=== PATIENT | female | born 1940 | race Caucasian/White ===

== ENCOUNTER 2024-06-01 23:20 | Inpatient (IN) | payer MEDICAID ==
[~2024-06-01] VITALS: Ht 160 cm; Wt 72.3 kg
[2024-06-01 23:40] VITALS: BP_SYST 161; PULSE 102; RESP 20; TEMP 96.6; O2SAT 98
[2024-06-02 00:46] LABS: BASOPHILS % (AUTO) 0.3 % (0.0-2.0); EOSINOPHILS % (AUTO) 0.1 % (0.0-4.0); HEMATOCRIT 41.1 % (36-48); HEMOGLOBIN 13.8 g/dL (12.0-16.0); LYMPHOCYTES # (AUTO) 0.8 K/uL (1.0-5.5); LYMPHOCYTES % (AUTO) 5.8 % (20.5-51.5); MEAN CORPUSCULAR HEMOGLOBIN 29 pg (27-31); MEAN CORPUSCULAR HGB CONC 34 % (32-36); MEAN CORPUSCULAR VOLUME 86 fL (79.0-98.0); MONOCYTES # (AUTO) 0.7 K/uL (0.0-1.0); MONOCYTES % (AUTO) 4.6 % (1.7-9.3); NEUTROPHILS # (AUTO) 12.6 K/uL (1.8-7.7); NEUTROPHILS % (AUTO) 89.2 % (40.0-70.0); PLATELET COUNT (AUTO) 262 K/uL (130-430); RED BLOOD CELL COUNT(AUTO) 4.77 MIL/uL (4.2-6.2); RED CELL DISTRIBUTION WIDTH 13.4 % (9.0-15.0); WHITE BLOOD COUNT (AUTO) 14.2 K/uL (4.8-10.8)
[2024-06-02 01:03] LABS: ALANINE AMINOTRANSFERASE 37 U/L (12-78); ALBUMIN 3.7 g/dL (3.4-4.8); ANION GAP 12 (5-15); ASPARTATE AMINOTRANSFERASE 36 U/L (10-37); BILIRUBIN,DIRECT 0.1 mg/dL (0.0-0.3); CARBON DIOXIDE 24 mmol/L (23-29); CHLORIDE 100 mmol/L (98-107); CREATININE 1.19 mg/dL (0.55-1.30); GLUCOSE 145 mg/dL (74-106); LIPASE 28 U/L (16-77); POTASSIUM 3.5 mmol/L (3.5-5.1); SODIUM SERUM 136 mmol/L (136-145); TOTAL BILIRUBIN 0.4 mg/dL (0.0-1.0); TOTAL PROTEIN, SERUM 7.5 g/dL (6.4-8.3); UREA NITROGEN, BLOOD 14 mg/dL (8-21)
[2024-06-02] MEDS ORDERED: IRBE150T48 PO (02:06)
[2024-06-02] MEDS ORDERED: LORA2TAB95 PO (02:10)
[2024-06-02] MEDS ORDERED: [UNRECOGNIZED DRUG - OTHER] (02:10)
[2024-06-02] MEDS ORDERED: ALPR-373 PO (02:10)
[2024-06-02] MEDS: NACL 0.9% 1,000 ML IV ONE (02:27)
[2024-06-02] MEDS: PIPERACILLIN/TAZO 3.375 GM in NS 50 ML IV SCH ×2 (02:27→15:20)
[2024-06-02] MEDS ORDERED: PIPERACILLIN/TAZOBACTAM 3.375 GM/VIAL (ZOSYN) IV ONE (02:29)
[2024-06-02 02:53] LABS: PROTHROMBIN TIME 10.7 SECS (9.5-12.5)
[2024-06-02] MEDS ORDERED: LIDOCAINE/EPI 1% 1:100000 20 ML VIAL ONE (07:52)
[2024-06-02] MEDS ORDERED: LR 1,000 ML IV.SOLN IV ONE (07:52)
[2024-06-02] MEDS ORDERED: LIDOCAINE 1% 10 MG/ML, 20 ML MDV ONE (07:52)
[2024-06-02] MEDS ORDERED: SEVOFLURANE 15 MIN GAS INH ONE (07:52)
[2024-06-02] MEDS ORDERED: SUCCINYLCHOLINE CHLORIDE 20 MG/ML(QUELICIN) ONE (07:52)
[2024-06-02] MEDS ORDERED: DEXAMETHASONE SOD PHOSPHATE 4 MG/ML VIAL ONE (07:52)
[2024-06-02] MEDS ORDERED: PROPOFOL 200MG/ 20ML VIAL (DIPRIVAN) IV ONE (07:52)
[2024-06-02] MEDS ORDERED: SUGAMMADEX SODIUM 200 MG/2 ML VIAL IV ONE (07:52)
[2024-06-02] MEDS ORDERED: BUPIVACAINE /PF 0.25% 30 ML VIAL INJ ONE (07:52)
[2024-06-02] MEDS ORDERED: ONDANSETRON HCL 4 MG/2 ML VIAL ONE (07:52)
[2024-06-02] MEDS: fentaNYL CITRATE/PF 100 MCG/2 ML AMP ONE (08:01)
[2024-06-02] MEDS: ACETAMINOPHEN I.V. 1000 MG 100 ML IV ONE (08:02)
[2024-06-02] MEDS ORDERED: HYDROmorphone 1 MG/ML INJ. CARTRIDGE IM PRN (08:30)
[2024-06-02] MEDS ORDERED: hydrALAZINE HCL 20 MG/ML VIAL IVP PRN (08:45)
[2024-06-02] MEDS ORDERED: hydrALAZINE HCL 20 MG/ML VIAL IV PRN (09:00)
[2024-06-02] MEDS ORDERED: KETOROLAC TROMETHAMINE 30 MG VIAL IM PRN (09:00)
[2024-06-02] MEDS ORDERED: HYDROmorphone 1 MG/ML INJ. CARTRIDGE IVP PRN ×2 (09:00)
[2024-06-02] MEDS ORDERED: NALOXONE HCL 0.4 MG/ML AMP (NARCAN) IVP PRN (09:00)
[2024-06-02] MEDS ORDERED: ONDANSETRON HCL 4 MG/2 ML VIAL IVP PRN (09:00)
[2024-06-02 10:20] LABS: BASOPHILS % (AUTO) 0.3 % (0.0-2.0); EOSINOPHILS % (AUTO) 0.2 % (0.0-4.0); HEMATOCRIT 39.6 % (36-48); LYMPHOCYTES # (AUTO) 1.1 K/uL (1.0-5.5); LYMPHOCYTES % (AUTO) 8.5 % (20.5-51.5); MEAN CORPUSCULAR HEMOGLOBIN 29 pg (27-31); MEAN CORPUSCULAR HGB CONC 33 % (32-36); MEAN CORPUSCULAR VOLUME 87 fL (79.0-98.0); MONOCYTES # (AUTO) 0.3 K/uL (0.0-1.0); MONOCYTES % (AUTO) 2.5 % (1.7-9.3); NEUTROPHILS # (AUTO) 11.9 K/uL (1.8-7.7); NEUTROPHILS % (AUTO) 88.5 % (40.0-70.0); PLATELET COUNT (AUTO) 289 K/uL (130-430); RED BLOOD CELL COUNT(AUTO) 4.57 MIL/uL (4.2-6.2); RED CELL DISTRIBUTION WIDTH 13.6 % (9.0-15.0); WHITE BLOOD COUNT (AUTO) 13.4 K/uL (4.8-10.8)
[2024-06-02 10:30] VITALS: O2SAT 91
[2024-06-02 10:30] LABS: ALBUMIN 3.4 g/dL (3.4-4.8); ANION GAP 13 (5-15); CALCIUM 8.5 mg/dL (8.4-11.0); CARBON DIOXIDE 21 mmol/L (23-29); CHLORIDE 104 mmol/L (98-107); CREATININE 0.98 mg/dL (0.55-1.30); GLUCOSE 225 mg/dL (74-106); POTASSIUM 3.4 mmol/L (3.5-5.1); SODIUM SERUM 138 mmol/L (136-145); TOTAL BILIRUBIN 0.4 mg/dL (0.0-1.0); TOTAL PROTEIN, SERUM 7.1 g/dL (6.4-8.3); UREA NITROGEN, BLOOD 11 mg/dL (8-21)
[2024-06-02 10:43] LABS: ALANINE AMINOTRANSFERASE 92 U/L (12-78); ASPARTATE AMINOTRANSFERASE 124 U/L (10-37)
[2024-06-02 11:10] VITALS: BP_SYST 140; PULSE 82; RESP 16; TEMP 97.6
[2024-06-02 12:14] VITALS: BP_SYST 147; PULSE 69; RESP 18; TEMP 98.4; O2SAT 96
[2024-06-02 16:15] VITALS: BP_SYST 137; PULSE 81; RESP 16; TEMP 98.7; O2SAT 98
[2024-06-02 17:04] LABS: CHOLESTEROL 162 mg/dL (<200); HDL CHOLESTEROL 57 mg/dL (>55); TRIGLYCERIDES 58 mg/dL (30-150)
[2024-06-02] MEDS: INSULIN REGULAR, HUMAN 100 UNITS/ML, 3 ML VIAL (humuLIN R) SUBCUT PRN (17:08)
[2024-06-02] MEDS: HYDROcodone/ACETAMIN 5-325 MG TAB (NORCO/ VICODIN) PO PRN (17:10)
[2024-06-02] MEDS: POTASSIUM CHLORIDE 20 MEQ/PKT PACKET PO ONE (17:57)
[2024-06-02 19:00] VITALS: O2SAT 96
[2024-06-02 20:00] VITALS: BP_SYST 139; PULSE 95; RESP 18; TEMP 97.3; O2SAT 98
[2024-06-03] VITALS (7 sets, daily range): BP systolic 127–167; PULSE 66–109; RESP 16–20; TEMP 97.1–99.4; O2SAT 94–99
[2024-06-03 05:02] LABS: BASOPHILS % (AUTO) 0.1 % (0.0-2.0); HEMATOCRIT 41.1 % (36-48); HEMOGLOBIN 13.4 g/dL (12.0-16.0); LYMPHOCYTES # (AUTO) 0.5 K/uL (1.0-5.5); LYMPHOCYTES % (AUTO) 3.1 % (20.5-51.5); MEAN CORPUSCULAR HEMOGLOBIN 28 pg (27-31); MEAN CORPUSCULAR HGB CONC 33 % (32-36); MEAN CORPUSCULAR VOLUME 87 fL (79.0-98.0); MONOCYTES # (AUTO) 0.8 K/uL (0.0-1.0); MONOCYTES % (AUTO) 4.7 % (1.7-9.3); NEUTROPHILS # (AUTO) 16.2 K/uL (1.8-7.7); NEUTROPHILS % (AUTO) 92.1 % (40.0-70.0); PLATELET COUNT (AUTO) 251 K/uL (130-430); RED BLOOD CELL COUNT(AUTO) 4.72 MIL/uL (4.2-6.2); RED CELL DISTRIBUTION WIDTH 13.5 % (9.0-15.0); WHITE BLOOD COUNT (AUTO) 17.6 K/uL (4.8-10.8)
[2024-06-03 05:34] LABS: ALANINE AMINOTRANSFERASE 119 U/L (12-78); ALBUMIN 3.2 g/dL (3.4-4.8); ANION GAP 11 (5-15); ASPARTATE AMINOTRANSFERASE 128 U/L (10-37); CARBON DIOXIDE 25 mmol/L (23-29); CHLORIDE 103 mmol/L (98-107); CREATININE 1.08 mg/dL (0.55-1.30); GLUCOSE 139 mg/dL (74-106); POTASSIUM 4.6 mmol/L (3.5-5.1); SODIUM SERUM 139 mmol/L (136-145); TOTAL BILIRUBIN 0.6 mg/dL (0.0-1.0); TOTAL PROTEIN, SERUM 7.1 g/dL (6.4-8.3); UREA NITROGEN, BLOOD 12 mg/dL (8-21)
[2024-06-03] MEDS ORDERED: DEXTROSE 50%-WATER 50 ML DISP.SYRIN IVP PRN (10:45)
[2024-06-03] MEDS ORDERED: MORPHINE 2 MG/ML INJ. SYRINGE IVP PRN (10:45)
[2024-06-03] MEDS ORDERED: NALOXONE HCL 0.4 MG/ML AMP (NARCAN) IVP PRN (10:45)
[2024-06-03] MEDS: ENOXAPARIN SODIUM 40 MG/0.4 ML SYRINGE SUBCUT ONE (11:58)
[2024-06-04 00:34] VITALS: BP_SYST 153; PULSE 107; RESP 16; TEMP 98.2; O2SAT 96
[2024-06-04 04:15] LABS: BASOPHILS % (AUTO) 0.1 % (0.0-2.0); EOSINOPHILS % (AUTO) 0.1 % (0.0-4.0); HEMATOCRIT 34.7 % (36-48); HEMOGLOBIN 11.4 g/dL (12.0-16.0); LYMPHOCYTES # (AUTO) 1.1 K/uL (1.0-5.5); LYMPHOCYTES % (AUTO) 7.6 % (20.5-51.5); MEAN CORPUSCULAR HEMOGLOBIN 28 pg (27-31); MEAN CORPUSCULAR HGB CONC 33 % (32-36); MEAN CORPUSCULAR VOLUME 86 fL (79.0-98.0); MONOCYTES # (AUTO) 0.5 K/uL (0.0-1.0); MONOCYTES % (AUTO) 3.3 % (1.7-9.3); NEUTROPHILS # (AUTO) 12.5 K/uL (1.8-7.7); NEUTROPHILS % (AUTO) 88.9 % (40.0-70.0); PLATELET COUNT (AUTO) 183 K/uL (130-430); RED BLOOD CELL COUNT(AUTO) 4.02 MIL/uL (4.2-6.2); RED CELL DISTRIBUTION WIDTH 13.7 % (9.0-15.0); WHITE BLOOD COUNT (AUTO) 14.1 K/uL (4.8-10.8)
[2024-06-04 04:48] LABS: ALANINE AMINOTRANSFERASE 86 U/L (12-78); ALBUMIN 2.5 g/dL (3.4-4.8); ANION GAP 6 (5-15); ASPARTATE AMINOTRANSFERASE 58 U/L (10-37); CALCIUM 8.6 mg/dL (8.4-11.0); CARBON DIOXIDE 27 mmol/L (23-29); CHLORIDE 103 mmol/L (98-107); CREATININE 0.97 mg/dL (0.55-1.30); GLUCOSE 119 mg/dL (74-106); POTASSIUM 4.1 mmol/L (3.5-5.1); SODIUM SERUM 136 mmol/L (136-145); TOTAL BILIRUBIN 0.5 mg/dL (0.0-1.0); TOTAL PROTEIN, SERUM 6.4 g/dL (6.4-8.3); UREA NITROGEN, BLOOD 12 mg/dL (8-21)
[2024-06-04 08:30] VITALS: O2SAT 98
[2024-06-04] MEDS: ENOXAPARIN SODIUM 40 MG/0.4 ML SYRINGE SUBCUT SCH (09:22)
[2024-06-04 11:14] VITALS: BP_SYST 138; PULSE 97; RESP 16; TEMP 97.8; O2SAT 98
[2024-06-04] MEDS ORDERED: AMOX-423 PO (11:15)
[2024-06-04] MEDS ORDERED: HYDR-3919 PO (11:15)
[2024-06-04] MEDS: INSULIN REGULAR, HUMAN 100 UNITS/ML, 3 ML VIAL (humuLIN R) SUBCUT PRN (12:07)
[2024-06-04 14:30] VITALS: BP_SYST 147; PULSE 108; RESP 16; TEMP 98.5; O2SAT 99
[2024-06-04] MEDS ORDERED: POLY17PO4 PO (14:44)
[2024-06-04 15:05] VITALS: BP_SYST 147; PULSE 113; RESP 16; TEMP 98.5; O2SAT 99
== END 2024-06-04 16:55 | disposition home or self-care (01) | DRG 263 ==
LOC: SED 23:20 → SMU 06-02 01:54
PROVIDERS: ADMIT Family Medicine; ATTEND Family Medicine
PROC: 0DNU4ZZ Release Omentum, Percutaneous Endoscopic Approach (ICD-10-PCS; 2024-06-02)
PROC: 0FT44ZZ Resection of Gallbladder, Percutaneous Endoscopic Approach (ICD-10-PCS; principal; 2024-06-02 07:57)
DX: K81.0 Acute cholecystitis (principal); D62 Acute posthemorrhagic anemia; Z79.899 Other long term (current) drug therapy; Z88.8 Allergy status to other drugs, medicaments and biological substances; R73.9 Hyperglycemia, unspecified; K66.0 Peritoneal adhesions (postprocedural) (postinfection)
CPT/HCPCS: 36415; 71045; 80048; 80053; 80061; 80076; 82948; 83037; 83690; 85025; 85610; 85730; 86886; 86900; 86901; 86920; 88304; 93005; 97110-GP; 97112-GP; 97530-GP; 99285; C1727; J0131; J0330; J0360; J1100; J1170; J1650; J1815; J2001; J2405; J2543; J2704; J3010; J3490; J7120